=== PATIENT | male | born 1965 | race American Indian/Alaskan Native ===

== ENCOUNTER 2017-02-26 09:15 | Emergency (ER) | payer SELFPAY ==
[2017-02-26] MEDS ORDERED: ROCEPHIN IM ONE (10:29)
[2017-02-26] MEDS ORDERED: XYLOCAINE 1% MPF 5 mL INFILTRATI ONE (10:29)
[2017-02-26] MEDS ORDERED: NACL 0.9% IR ONE (10:31)
[2017-02-26] MEDS ORDERED: CATAPRES PO ONE (10:32)
[2017-02-26] MEDS ORDERED: NACL 0.9% 500 ML IR ONE (10:32)
--- NOTE | 2017-02-26 10:33 | Emergency Department Report ---
ED Laceration HPI - HPI Chief Complaint: Laceration/Recheck/Suture Stated Complaint: RA GARCIA ON THURSDAY, WAS PUTTING IN GLASS DOOR WHEN HE CUT IT Time Seen by Provider: 02/26/17 10:17 Occurred When: Before Yesterday Location: Upper Extremity (r) Severity: moderate Tetanus Status: Up to Date Laceration Symptoms: Yes Pain, No Foreign Body Sensation, No Numbness, No Weakness ED Review of Systems ROS: Stated complaint: RT ARM LAC Other details as noted in HPI Comment: All other systems reviewed and negative Constitutional: no symptoms reported, see HPI. denies: chills Eyes: as per HPI. denies: eye pain ENT: as per HPI. denies: ear pain, throat pain Respiratory: no symptoms reported, see HPI. denies: cough, orthopnea Cardiovascular: as per HPI. denies: chest pain, palpitations, dyspnea on exertion, orthopnea Endocrine: no symptoms reported, see HPI. denies: excessive sweating, flushing Gastrointestinal: as per HPI. denies: abdominal pain, nausea, vomiting Genitourinary: as per HPI. denies: urgency, dysuria Musculoskeletal: as per HPI. denies: back pain Skin: as per HPI, lesions. denies: rash Neurological: as per HPI. denies: headache, weakness Psychiatric: as per HPI. denies: anxiety, depression Hematological/Lymphatic: as per HPI. denies: easy bleeding ED Past Medical Hx - Past Medical History Previous Medical History?: Yes Hx Hypertension: Yes - Surgical History Past Surgical History?: No - Social History Smoking Status: Current Every Day Smoker Substance Use Type: Alcohol - Medications Home Medications: Home Medications Medication Instructions Recorded Confirmed Last Taken Type Amoxicillin [Trimox CAP] 500 mg PO Q8H #30 capsule 02/26/17 Unknown Rx Laceration Physical Exam - Exam General: Vital signs noted. No distress. Alert and acting appropriately. Wound Length (cm): 9 Laceration Location: Upper Extremity Full Body Front + Back: 1 - AREA OF LAC Laceration Exam: Yes Normal Distal CMS, No Foreign Body, No Exposed Tendon, Vessel, or Nerve, No Tendon Injury ED Course Vital Signs 02/26/17 10:05 Temperature 98.4 F Pulse Rate 74 Respiratory 16 Rate Blood Pressure 169/116 O2 Sat by Pulse 100 Oximetry - Reevaluation(s) Reevaluation #1: 02/26/17 11:54 SEVERAL DAY OLD DEEP WOUND MEDS PER ORDERS WOUND CLEAN AND WOUND CARE PER NOTE SEVERAL DAY OLD WILL HAVE TO HEAL W TERTIARY INTENTION RED AND SWOLLEN NO DRAINAGE PT HAD CLEANED IT AT HOME NO FEVER NON TOXIC APPEARING TDAP IS UTD FAMILY EDUCATED ON WOUND CARE BP DEC ON ITS OWN PT OFF HIS MEDS DISCUSSED COMPLIANCE/CVA/FREE AT [employer]- HCTZ AND LISINOPRIL - Laceration /Wound Repair RA Wound Location: upper extremity Irrigated w/ Saline (ccs): 9 Betadine Prep?: Yes Volume Anesthetic (ccs): 0 Wound Debrided: minimal Wound Repaired With: Steri-strips, Dermabond Number of Sutures: 0 Layer Closure?: No Sterile Dressing Applied?: Yes Progress: WOUND FLUSHED W 100 ML NS AND BETADINE WOUND EDGES APPROX W STERI STRIPS AND DERMADHESIVE LARGE BULKY DRESSING PT EDUCATED ON WOUND CARE ED Medical Decision Making - Medical Decision Making LAC 4 DAYS OLD- CLEANED AND DRESSED SEE NOTE TDAP UTD ANBX GIVEN Critical care attestation.: If time is entered above; I have spent that time in minutes in the direct care of this critically ill patient, excluding procedure time. ED Disposition Clinical Impression: Wound cellulitis, Laceration, Hypertension Disposition: DC-01 TO HOME OR SELFCARE Is pt being admited?: No Does the pt Need Aspirin: No Condition: Stable Instructions: Laceration (ED), Hypertension (ED) Additional Instructions: TAKE YOU HOME BP MEDS DAILY TAKE MED INSTRUCTED TODAY FOR WOUND CHANGE DRESSING INSTRUCTED KEEP IT CLEAN AND DRESSING DRY DO NOT IMMERSE IN WATER FOR SEVERAL DAYS Prescriptions: Amoxicillin [Trimox CAP] 500 mg PO Q8H #30 capsule Referrals: MIKE PEREZ MD [Staff Physician] - 3-5 Days Time of Disposition: 10:48
[2017-02-26] MEDS ORDERED: XYLOCAINE 1% MPF 5 mL ONE (10:34)
[2017-02-26] MEDS ORDERED: ROCEPHIN ONE (10:34)
[2017-02-26 10:50] VITALS: BP 130/79
== END 2017-02-26 11:31 | disposition home or self-care (01) ==
LOC: ED 09:15
DX: S41.111A Laceration without foreign body of right upper arm, initial encounter (principal); L03.113 Cellulitis of right upper limb; W45.8XXA Other foreign body or object entering through skin, initial encounter; Y93.9 Activity, unspecified; Y92.9 Unspecified place or not applicable; Y99.9 Unspecified external cause status
CPT/HCPCS: 12004; 96372; 99282; J0696

== ENCOUNTER 2018-08-19 15:43 | Emergency (ER) | payer SELFPAY ==
--- NOTE | 2018-08-19 15:50 | Emergency Department Report ---
Blank Doc - Documentation Documentation: Come in for chest congestion and asthma flare up since Thursday. This initial assessment diagnostic orders/clinical plan/treatment (s) is/Are subject change based on patient's health status, clinical progression and re- assessment by fellow clinical providers in the ED. Further treatment and work-up at subsequent clinical providers discretion. Patient/guardians urged not to elope from their condition may be serious if not clinically assessed and managed. Initial order include:
--- NOTE | 2018-08-19 17:00 | XRay Report ---
PROCEDURE: XR CHEST ROUTINE 2V TECHNIQUE: 2 views of the chest HISTORY: chest congestion COMPARISONS: None FINDINGS: Normal heart size with left ventricular configuration. Prominent ascending aorta. Lungs are hyperlucent with reticular coarsening of the bronchovascular interstitium suggestive of int erstitial infiltrate, primarily on the right. Bronchial wall thickening. No effusion. Imaged axial skeleton is unremarkable. IMPRESSION: Pulmonary emphysema with ill-defined right-sided reticular interstitial infiltrate. Mild bronchitis. This document is electronically signed by Padma Cruz MD., August 19 2018 04:58:24 PM ET
[2018-08-19] MEDS ORDERED: ATROVENT IH ONE (17:56)
[2018-08-19] MEDS ORDERED: SOLU-Medrol IV ONE (17:56)
[2018-08-19] MEDS ORDERED: PROVENTIL IH ONE (17:56)
--- NOTE | 2018-08-19 18:22 | Emergency Department Report ---
HPI - General Chief Complaint: Dyspnea/Respdistress Time Seen by Provider: 08/19/18 15:47 - HPI HPI: 53-year-old male presents to the emergency department with complaint of a 45 day history of some shortness of breath, wheezing, mixed dry and productive cough. Patient says that he was just getting over a chest cold last week. He is a tobacco smoker but denies any illicit drug use. He says that he has a history of asthma but has not had any asthma exacerbations in about 20 years and therefore does not have any inhaler or nebulizer at home. Recent travel or sick contacts at home. He presents with some elevated blood pressure and does have a history of hypertension for which he says he is compliant with his blood pressure medications. ED Past Medical Hx - Past Medical History Hx Hypertension: Yes Hx Asthma: Yes - Surgical History Past Surgical History?: No - Social History Smoking Status: Current Every Day Smoker Substance Use Type: Alcohol - Medications Home Medications: Home Medications Medication Instructions Recorded Confirmed Last Taken Type RX: Amoxicillin [Trimox CAP] 500 mg PO Q8H #30 capsule 02/26/17 Unknown Rx Azithromycin [Zithromax Z-MASSIEL] 250 mg PO DAILY #6 tab 08/19/18 Unknown Rx RX: ALBUTEROL Inhaler (OR & NICU) 2 puff IH QID PRN #1 inhalation 08/19/18 Unknown Rx [ProAir HFA Inhaler] RX: predniSONE [Deltasone] 20 mg PO BID #10 tab 08/19/18 Unknown Rx ED Review of Systems ROS: Stated complaint: ASTHMA ATTACK Other details as noted in HPI Comment: All other systems reviewed and negative Constitutional: denies: chills, fever Eyes: denies: eye pain, vision change ENT: denies: ear pain, throat pain Respiratory: cough, shortness of breath, wheezing Cardiovascular: denies: chest pain, edema Gastrointestinal: denies: abdominal pain, vomiting Genitourinary: denies: dysuria, frequency Musculoskeletal: denies: back pain, arthralgia Skin: denies: rash, lesions Neurological: denies: headache, weakness Physical Exam - Physical Exam Vital Signs: Vital Signs 08/19/18 08/19/18 15:46 18:14 Temperature 98 F Pulse Rate 106 H 100 H Respiratory 18 Rate Blood Pressure 180/117 Blood Pressure 163/94 [Left] O2 Sat by Pulse 97 Oximetry Physical Exam: GENERAL: The patient is well-developed well-nourished. HEENT: Normocephalic. Atraumatic. Patient has moist mucous membranes. EYES: Extraocular motions are intact. Pupils are equal and reactive to light bilaterally. NECK: Supple. Trachea is midline. CHEST/LUNGS: Mild wheezing throughout the chest. There is a productive sounding cough heard during examination. No tachypnea or accessory muscle use. There is no respiratory distress noted. HEART/CARDIOVASCULAR: Regular. There is no tachycardia. There is no obvious murmur. ABDOMEN: There is no abdominal distention. SKIN: Skin is warm and dry. NEURO: The patient is awake, alert, and oriented. The patient is cooperative. The patient has no focal neurologic deficits. The patient has normal speech. MUSCULOSKELETAL: There is no tenderness or deformity. There is no evidence of acute injury. ED Course Vital Signs 08/19/18 08/19/18 15:46 18:14 Temperature 98 F Pulse Rate 106 H 100 H Respiratory 18 Rate Blood Pressure 180/117 Blood Pressure 163/94 [Left] O2 Sat by Pulse 97 Oximetry ED Medical Decision Making - Radiology Data Radiology results: report reviewed PROCEDURE: XR CHEST ROUTINE 2V TECHNIQUE: 2 views of the chest HISTORY: chest congestion COMPARISONS: None FINDINGS: Normal heart size with left ventricular configuration. Prominent ascending aorta. Lungs are hyperlucent with reticular coarsening of the bronchovascular interstitium suggestive of interstitial infiltrate, primarily on the right. Bronchial wall thickening. No effusion. Imaged axial skeleton is unremarkable. IMPRESSION: Pulmonary emphysema with ill-defined right-sided reticular interstitial infiltrate. Mild bronchitis. This document is electronically signed by Augustine Segal MD., August 19 2018 04:58:24 PM ET Transcribed By: DIEUDONNE Dictated By: AUGUSTINE SEGAL Electronically Authenticated By: AUGUSTINE SEGAL Signed Date/Time: 08/19/18 1700 - Medical Decision Making Patient presents with a few days of shortness of breath, wheezing and a mixed dry and productive cough. He has some hypertension but it came down to a reasonable level prior to discharge. Otherwise vital signs stable including being afebrile. Chest x-ray was read by radiology as showing some small area of particular infiltrate. Patient was given breathing treatments and Solu-Medrol. Upon reevaluation his wheezing and bronchospasm has greatly improved. There are no signs of any respiratory distress. Patient will be discharged home with an albuterol inhaler, steroids and an antibiotic. He will follow-up with his primary care physician and return to the ER with any worsening of his symptoms or any acute distress. - Differential Diagnosis asthma, pneumonia, bronchitis, URI Critical Care Time: No Critical care attestation.: If time is entered above; I have spent that time in minutes in the direct care of this critically ill patient, excluding procedure time. ED Disposition Clinical Impression: Bronchospasm Pneumonia Qualifiers: Pneumonia type: due to unspecified organism Laterality: right Lung location: unspecified part of lung Qualified Code(s): J18.9 - Pneumonia, unspecified organism Hypertension Qualifiers: Hypertension type: essential hypertension Qualified Code(s): I10 - Essential (primary) hypertension Disposition: TO HOME OR SELFCARE Is pt being admited?: No Condition: Stable Instructions: Community-acquired Pneumonia (ED), Hypertension (ED) Additional Instructions: Please try and quit smoking. Please follow up with a primary care physician. Take the antibiotics and steroids as prescribed. Return to the emergency Department with any worsening of your symptoms or any acute distress. Try and stay away from foods that are high in salt and caffeinated products to help with your blood pressure. Keep a blood pressure log. Prescriptions: RX: ALBUTEROL Inhaler (OR & NICU) [ProAir HFA Inhaler] 2 puff IH QID PRN #1 inhalation PRN Reason: Shortness Of Breath Azithromycin [Zithromax Z-MASSIEL] 250 mg PO DAILY #6 tab RX: predniSONE [Deltasone] 20 mg PO BID #10 tab Referrals: Primary Care Provider, Your [Other] - 2-3 Days Time of Disposition: 19:50
[2018-08-19] MEDS ORDERED: ZITHROMAX 500 MG in NACL 0.9% 250ML 250 ML IV ONE (19:08)
[2018-08-19 19:50] VITALS: BP 145/85
== END 2018-08-19 21:50 | disposition home or self-care (01) ==
LOC: ED 15:43
DX: J18.9 Pneumonia, unspecified organism (principal); I10 Essential (primary) hypertension; J45.909 Unspecified asthma, uncomplicated; F17.200 Nicotine dependence, unspecified, uncomplicated
CPT/HCPCS: 71046; 94640; 96365; 96366; 99283; J0456; J2930; J7050